=== PATIENT | female | born 1930 | race Caucasian/White ===

== ENCOUNTER 2016-12-12 13:38 | Inpatient (IN) | payer MEDICARE, MEDICAID ==
[~2016-12-12] VITALS: Ht 147.3 cm; Wt 62.4 kg
[2016-12-12] MEDS ORDERED: TEMAZEPAM 15 MG CAPSULE PO PRN (15:00)
[2016-12-12] MEDS ORDERED: DOCUSATE 100 MG CAPSULE PO PRN (15:00)
[2016-12-12] MEDS ORDERED: ENALAPRILAT 1.25 MG/ML, 2ML IVPush PRN (15:00)
[2016-12-12] MEDS ORDERED: ACETAMINOPHEN 325 MG TABLET PO PRN (15:00)
[2016-12-12] MEDS ORDERED: ONDANSETRON 2MG/ML, 2ML IVPush PRN (15:00)
[2016-12-12] MEDS: PLEASE ENTER HEIGHT AND WEIGHT MC SCH (19:30)
[2016-12-12] MEDS ORDERED: PLEASE ENTER ALLERGIES MC SCH ×2 (19:30)
[2016-12-12 19:50] VITALS: BP 168/66
[2016-12-12] MEDS: ENOXAPARIN 40 MG/0.4 ML SQ SCH (21:26)
[2016-12-12] MEDS: SODIUM CHLORIDE 0.9% 1,000 ML IV SCH (21:26)
[2016-12-12] MEDS: CEFTRIAXONE PMX 1GM/50ML 50 ML IV SCH (21:26)
[2016-12-12] MEDS: NYSTATIN TOPICAL POWDER 15GM TP SCH (22:42)
[2016-12-13] MEDS: PLEASE ENTER HEIGHT AND WEIGHT MC SCH ×3 (02:41→12:24)
[2016-12-13 03:00] VITALS: BP 170/77
[2016-12-13 04:36] LABS: BLOOD UREA NITROGEN 22 mg/dL (7-18)
[2016-12-13] MEDS: SODIUM CHLORIDE 0.9% 1,000 ML IV SCH ×3 (05:52→21:00)
[2016-12-13 07:19] VITALS: BP 186/84
[2016-12-13] MEDS: NYSTATIN TOPICAL POWDER 15GM TP SCH ×3 (08:49→16:41)
[2016-12-13] MEDS ORDERED: POTASSIUM CHLORIDE 20 MEQ TAB.ER.PRT PO ONE (12:00)
[2016-12-13 13:44] VITALS: BP 159/67
[2016-12-13] MEDS ORDERED: ACETAMINOPHEN 325 MG TABLET PO PRN (15:30)
[2016-12-13] MEDS ORDERED: ENALAPRILAT 1.25 MG/ML, 2ML IVPush PRN (15:30)
[2016-12-13] MEDS ORDERED: DOCUSATE 100 MG CAPSULE PO PRN (15:30)
[2016-12-13] MEDS ORDERED: ONDANSETRON 2MG/ML, 2ML IVPush PRN (15:30)
[2016-12-13] MEDS ORDERED: TEMAZEPAM 15 MG CAPSULE PO PRN (15:30)
[2016-12-13 20:45] VITALS: BP 160/69
[2016-12-13] MEDS: CEFTRIAXONE PMX 1GM/50ML 50 ML IV SCH (20:59)
[2016-12-13] MEDS: ENOXAPARIN 40 MG/0.4 ML SQ SCH (21:01)
[2016-12-14 03:31] VITALS: BP 138/58
[2016-12-14] MEDS: SODIUM CHLORIDE 0.9% 1,000 ML IV SCH ×2 (05:24→13:23)
[2016-12-14 08:05] VITALS: BP 157/51
[2016-12-14] MEDS: NYSTATIN TOPICAL POWDER 15GM TP SCH ×3 (09:45→20:11)
[2016-12-14 13:00] VITALS: BP 165/65
[2016-12-14 13:26] VITALS: BP 146/72
[2016-12-14] MEDS: POTASSIUM CHLORIDE 20 MEQ in DEXTROSE 5% 1,000 ML IV SCH (18:44)
[2016-12-14 20:02] VITALS: BP 156/59
[2016-12-14] MEDS: CEFTRIAXONE PMX 1GM/50ML 50 ML IV SCH (20:11)
[2016-12-14] MEDS: ENOXAPARIN 40 MG/0.4 ML SQ SCH (20:12)
[2016-12-15 01:58] VITALS: BP 129/50
[2016-12-15 05:10] LABS: BLOOD UREA NITROGEN 8 mg/dL (7-18)
[2016-12-15 05:38] LABS: ASPARTATE AMINO TRANSFERASE 41 U/L (15-37)
[2016-12-15 07:07] VITALS: BP 179/81
[2016-12-15] MEDS ORDERED: MAGNESIUM SULFATE PMX 2GM/50ML 50 ML IV ONE (10:00)
[2016-12-15] MEDS: NYSTATIN TOPICAL POWDER 15GM TP SCH ×3 (10:03→20:32)
[2016-12-15] MEDS ORDERED: MIDAZOLAM 1 MG/ML, 5ML ONE (11:27)
[2016-12-15] MEDS ORDERED: FENTANYL PF 100 MCG/2ML ONE (11:28)
[2016-12-15] MEDS: POTASSIUM CHLORIDE 20 MEQ in DEXTROSE 5% 1,000 ML IV SCH (12:29)
[2016-12-15 14:21] VITALS: BP 171/65
[2016-12-15] MEDS: LISINOPRIL 10 MG TABLET PO SCH (17:00)
[2016-12-15 20:27] VITALS: BP 163/62
[2016-12-15] MEDS: ENOXAPARIN 40 MG/0.4 ML SQ SCH (20:32)
[2016-12-15] MEDS: CEFTRIAXONE PMX 1GM/50ML 50 ML IV SCH (20:32)
[2016-12-16 01:26] VITALS: BP 152/82
[2016-12-16 05:58] LABS: BLOOD UREA NITROGEN 7 mg/dL (7-18)
[2016-12-16 06:41] VITALS: BP 161/75
[2016-12-16] MEDS: LISINOPRIL 10 MG TABLET PO SCH (09:19)
[2016-12-16] MEDS: NYSTATIN TOPICAL POWDER 15GM TP SCH (09:19)
[2016-12-16 13:34] VITALS: BP 162/100
[2016-12-16] MEDS ORDERED: CLIN300C93 PO (13:36)
[2016-12-16] MEDS ORDERED: ACID1TAB3 PO (14:00)
== END 2016-12-16 17:49 | disposition home or self-care (01) | DRG 871 ==
LOC: 3NW 19:03
PROVIDERS: ADMIT Internal Medicine
PROC: 0T9B70Z Drainage of Bladder with Drainage Device, Via Natural or Artificial Opening (ICD-10-PCS; principal; 2016-12-15)
DX: A41.9 Sepsis, unspecified organism (principal); G93.41 Metabolic encephalopathy; N39.0 Urinary tract infection, site not specified; E87.0 Hyperosmolality and hypernatremia; B37.9 Candidiasis, unspecified; F02.80 Dementia in other diseases classified elsewhere, unspecified severity, without behavioral disturbance, psychotic disturbance, mood disturbance, and anxiety; G30.9 Alzheimer's disease, unspecified; I10 Essential (primary) hypertension; Z66 Do not resuscitate; Z88.0 Allergy status to penicillin; Z88.6 Allergy status to analgesic agent; K04.7 Periapical abscess without sinus
CPT/HCPCS: 36415; 70551; 80048; 80053; 81001; 82140; 82607; 82746; 83735; 84443; 85025; 87086; 87106; 99156; 99157; J0696; J1650; J2250; J3010; J3480; J7070; 92523-GN; J3475; J7030